=== PATIENT | female | born 1965 | race African-American/Black ===

== ENCOUNTER 2021-11-13 21:21 | Inpatient (IN) | payer MEDICARE, MEDICAID ==
[~2021-11-13] VITALS: Ht 170.2 cm; Wt 123.8 kg
[2021-11-13 21:21] VITALS: BP 142/62
[2021-11-14] MEDS ORDERED: ONDANSETRON HCL 4MG/2ML INJ IV PRN
[2021-11-14] MEDS ORDERED: CLONIDINE 0.1MG TABLET PO PRN
[2021-11-14] MEDS ORDERED: ZOLPIDEM TARTRATE 5MG TABLET PO PRN
[2021-11-14] MEDS ORDERED: NA PHOS,M-B/NA PHOS,DI-BA ENEMA 118ML PR PRN
[2021-11-14] MEDS ORDERED: IPRATROPIUM/ALBUTEROL 0.5-3(2.5)MG/3ML NEB HHN SCH
[2021-11-14] MEDS ORDERED: GUAIFENESIN-DM 200MG-20MG/10ML UDC PO PRN
[2021-11-14] MEDS ORDERED: ACETAMINOPHEN 325MG TABLET PO PRN
[2021-11-14] MEDS ORDERED: NITROGLYCERIN 0.4MG TABLET SL SL PRN
[2021-11-14] MEDS ORDERED: DEXTROSE 50% WATER 50ML SYRINGE IV PRN
[2021-11-14] MEDS: DEXAMETHASONE 4MG TABLET PO SCH ×2 (05:02→12:43)
[2021-11-14] MEDS: BLOOD SUGAR DIAGNOSTIC STRIP TEST SCH ×4 (05:25→21:00)
[2021-11-14 07:03] LABS: CHLORIDE 107 mEq/L (98-107)
[2021-11-14 07:12] LABS: BASOPHILS % 0.8 % (0.0-2.0); EOSINOPHILS % 0.6 % (0.0-5.0); HEMATOCRIT. 39.7 % (36.0-48.0); HEMOGLOBIN. 13.5 g/dL (12.0-16.0); LYMPHOCYTES % 29.2 % (20.0-50.0); MEAN CORPUSCULAR HEMOGLOBIN 31.3 pg (28.0-32.0); MEAN CORPUSCULAR VOLUME 92.5 fL (81.0-99.0); MEAN PLATELET VOLUME 8.4 fl (7.4-10.4); MONOCYTES % 7.2 % (2.0-8.0); NEUTROPHILS % 62.2 % (40.0-76.0); PLATELET 379 x1000/uL (130-400); RED CELL DISTRIBUTION WIDTH 14.2 % (11.6-14.6)
[2021-11-14 08:00] VITALS: BP 149/92
[2021-11-14] MEDS: POTASSIUM CHLORIDE 20MEQ/PACKET PO SCH (08:29)
[2021-11-14] MEDS: FAMOTIDINE 20MG TABLET PO SCH ×2 (08:29→21:21)
[2021-11-14] MEDS: ASPIRIN 81MG TABLET PO SCH (08:29)
[2021-11-14] MEDS: FUROSEMIDE 40MG TABLET PO SCH (08:30)
[2021-11-14] MEDS: LEVETIRACETAM 500MG TABLET PO SCH ×2 (08:30→21:22)
[2021-11-14] MEDS: CLOPIDOGREL 75MG TABLET PO SCH (08:30)
[2021-11-14] MEDS: CARVEDILOL 3.125 MG TABLET PO SCH ×2 (08:33→21:22)
[2021-11-14] MEDS: LOSARTAN POTASSIUM 25 MG TABLET PO SCH (08:33)
[2021-11-14] MEDS: ACETAMINOPHEN 325MG TABLET PO PRN (08:36)
[2021-11-14] MEDS: INSULIN LISPRO 100 UNITS/ML SUBCUT SCH ×4 (08:43→22:24)
[2021-11-14] MEDS ORDERED: IPRATROPIUM/ALBUTEROL 0.5-3(2.5)MG/3ML NEB HHN PRN (09:00)
[2021-11-14] MEDS: DEXAMETHASONE 2MG TABLET PO SCH (17:01)
[2021-11-14 20:00] VITALS: BP 117/60
[2021-11-14] MEDS: ATORVASTATIN CALCIUM 40MG TABLET PO SCH (21:22)
[2021-11-15] MEDS: DEXAMETHASONE 2MG TABLET PO SCH ×4 (00:17→17:00)
[2021-11-15] MEDS ORDERED: ACYCLOVIR (01:18)
[2021-11-15] MEDS ORDERED: FOLI-43 PO (01:18)
[2021-11-15] MEDS ORDERED: METF-414 (01:18)
[2021-11-15] MEDS ORDERED: FURO80TA3 (01:18)
[2021-11-15] MEDS ORDERED: CLOP75TA33 (01:18)
[2021-11-15] MEDS: BLOOD SUGAR DIAGNOSTIC STRIP TEST SCH ×4 (06:08→21:09)
[2021-11-15] MEDS: INSULIN LISPRO 100 UNITS/ML SUBCUT SCH ×4 (06:13→21:27)
[2021-11-15 07:53] LABS: BASOPHILS % 0.6 % (0.0-2.0); EOSINOPHILS % 0.3 % (0.0-5.0); HEMATOCRIT. 40.7 % (36.0-48.0); HEMOGLOBIN. 13.4 g/dL (12.0-16.0); LYMPHOCYTES % 22.6 % (20.0-50.0); MEAN CORPUSCULAR HEMOGLOBIN 30.7 pg (28.0-32.0); MEAN CORPUSCULAR VOLUME 93.4 fL (81.0-99.0); MEAN PLATELET VOLUME 8.6 fl (7.4-10.4); MONOCYTES % 7.5 % (2.0-8.0); PLATELET 358 x1000/uL (130-400); RED BLOOD CELL COUNT 4.36 mill/uL (4.2-5.4)
[2021-11-15 08:00] VITALS: BP 139/72
[2021-11-15 08:00] LABS: CHLORIDE 107 mEq/L (98-107)
[2021-11-15] MEDS: POTASSIUM CHLORIDE 20MEQ/PACKET PO SCH (09:23)
[2021-11-15] MEDS: ASPIRIN 81MG TABLET PO SCH (09:23)
[2021-11-15] MEDS: LEVETIRACETAM 500MG TABLET PO SCH ×2 (09:24→20:43)
[2021-11-15] MEDS: CARVEDILOL 3.125 MG TABLET PO SCH ×2 (09:24→20:44)
[2021-11-15] MEDS: FAMOTIDINE 20MG TABLET PO SCH ×2 (09:24→20:43)
[2021-11-15] MEDS: LOSARTAN POTASSIUM 25 MG TABLET PO SCH (09:24)
[2021-11-15] MEDS: FUROSEMIDE 40MG TABLET PO SCH (09:24)
[2021-11-15] MEDS: CLOPIDOGREL 75MG TABLET PO SCH (09:24)
[2021-11-15 20:00] VITALS: BP 139/72
[2021-11-15] MEDS: ATORVASTATIN CALCIUM 40MG TABLET PO SCH (20:43)
[2021-11-15] MEDS: ENOXAPARIN 120MG/0.8ML SYR SUBCUT SCH (20:43)
[2021-11-15 21:39] LABS: INR 1.1; PROTHROMBIN TIME 11.4 sec (9.6-11.0)
[2021-11-16] MEDS: ENOXAPARIN 120MG/0.8ML SYR SUBCUT SCH ×2 (05:08→17:25)
[2021-11-16] MEDS: DEXAMETHASONE 2MG TABLET PO SCH ×2 (05:08→17:25)
[2021-11-16] MEDS: BLOOD SUGAR DIAGNOSTIC STRIP TEST SCH ×4 (06:01→21:02)
[2021-11-16] MEDS: INSULIN LISPRO 100 UNITS/ML SUBCUT SCH ×4 (06:54→21:02)
[2021-11-16 08:00] VITALS: BP 123/74
[2021-11-16] MEDS: POTASSIUM CHLORIDE 20MEQ/PACKET PO SCH (09:46)
[2021-11-16] MEDS: FAMOTIDINE 20MG TABLET PO SCH ×2 (09:46→21:02)
[2021-11-16] MEDS: ASPIRIN 81MG TABLET PO SCH (09:46)
[2021-11-16] MEDS: CLOPIDOGREL 75MG TABLET PO SCH (09:47)
[2021-11-16] MEDS: LEVETIRACETAM 500MG TABLET PO SCH ×2 (09:47→21:02)
[2021-11-16] MEDS: FUROSEMIDE 40MG TABLET PO SCH (09:47)
[2021-11-16] MEDS: CARVEDILOL 3.125 MG TABLET PO SCH ×2 (09:47→21:02)
[2021-11-16] MEDS: LOSARTAN POTASSIUM 25 MG TABLET PO SCH (09:47)
[2021-11-16 20:00] VITALS: BP 126/57
[2021-11-16] MEDS: ATORVASTATIN CALCIUM 40MG TABLET PO SCH (21:02)
[2021-11-17] MEDS: BLOOD SUGAR DIAGNOSTIC STRIP TEST SCH ×4 (05:32→20:45)
[2021-11-17] MEDS: INSULIN LISPRO 100 UNITS/ML SUBCUT SCH ×4 (05:32→20:48)
[2021-11-17] MEDS: ENOXAPARIN 120MG/0.8ML SYR SUBCUT SCH ×2 (05:32→17:43)
[2021-11-17] MEDS: DEXAMETHASONE 2MG TABLET PO SCH ×2 (05:32→17:42)
[2021-11-17 08:00] VITALS: BP 146/81
[2021-11-17] MEDS: ASPIRIN 81MG TABLET PO SCH (10:38)
[2021-11-17] MEDS: CLOPIDOGREL 75MG TABLET PO SCH (10:39)
[2021-11-17] MEDS: LEVETIRACETAM 500MG TABLET PO SCH ×2 (10:39→20:42)
[2021-11-17] MEDS: FUROSEMIDE 40MG TABLET PO SCH (10:39)
[2021-11-17] MEDS: POTASSIUM CHLORIDE 20MEQ/PACKET PO SCH (10:39)
[2021-11-17] MEDS: FAMOTIDINE 20MG TABLET PO SCH ×2 (10:40→20:42)
[2021-11-17] MEDS: CARVEDILOL 3.125 MG TABLET PO SCH ×2 (10:40→20:42)
[2021-11-17] MEDS: LOSARTAN POTASSIUM 25 MG TABLET PO SCH (10:40)
[2021-11-17 20:00] VITALS: BP 116/55
[2021-11-17] MEDS: ATORVASTATIN CALCIUM 40MG TABLET PO SCH (20:42)
[2021-11-18] MEDS: ENOXAPARIN 120MG/0.8ML SYR SUBCUT SCH ×2 (06:14→17:42)
[2021-11-18] MEDS: DEXAMETHASONE 2MG TABLET PO SCH (06:14)
[2021-11-18] MEDS: BLOOD SUGAR DIAGNOSTIC STRIP TEST SCH ×4 (06:14→21:39)
[2021-11-18] MEDS: INSULIN LISPRO 100 UNITS/ML SUBCUT SCH ×4 (06:23→21:51)
[2021-11-18 08:00] VITALS: BP 110/62
[2021-11-18] MEDS: ASPIRIN 81MG TABLET PO SCH (09:07)
[2021-11-18] MEDS: FAMOTIDINE 20MG TABLET PO SCH ×2 (09:08→21:40)
[2021-11-18] MEDS: LEVETIRACETAM 500MG TABLET PO SCH ×2 (09:08→21:40)
[2021-11-18] MEDS: FUROSEMIDE 40MG TABLET PO SCH (09:08)
[2021-11-18] MEDS: LOSARTAN POTASSIUM 25 MG TABLET PO SCH (09:08)
[2021-11-18] MEDS: CARVEDILOL 3.125 MG TABLET PO SCH ×2 (09:08→21:40)
[2021-11-18] MEDS: MAGNESIUM/ALUMINUM HYDROXIDE/SIMETHICONE 30ML UDC PO PRN (09:09)
[2021-11-18] MEDS: POTASSIUM CHLORIDE 20MEQ/PACKET PO SCH (09:09)
[2021-11-18] MEDS: CLOPIDOGREL 75MG TABLET PO SCH (09:09)
[2021-11-18] MEDS: ACETAMINOPHEN 325MG TABLET PO PRN (09:10)
[2021-11-18 14:15] VITALS: BP 110/62
[2021-11-18 14:29] VITALS: BP 98/56
[2021-11-18 15:14] LABS: BASOPHILS % 0.7 % (0.0-2.0); EOSINOPHILS % 0.6 % (0.0-5.0); HEMOGLOBIN. 12.7 g/dL (12.0-16.0); LYMPHOCYTES % 25.6 % (20.0-50.0); MEAN CORPUSCULAR HEMOGLOBIN 30.2 pg (28.0-32.0); MONOCYTES % 6.5 % (2.0-8.0); NEUTROPHILS % 66.6 % (40.0-76.0); PLATELET 309 x1000/uL (130-400); RED BLOOD CELL COUNT 4.19 mill/uL (4.2-5.4)
[2021-11-18 15:23] LABS: CHLORIDE 105 mEq/L (98-107)
[2021-11-18] MEDS: DEXAMETHASONE 1MG TABLET PO SCH (17:42)
[2021-11-18 20:00] VITALS: BP 114/67
[2021-11-18] MEDS: ATORVASTATIN CALCIUM 40MG TABLET PO SCH (21:40)
[2021-11-19] MEDS: DEXAMETHASONE 1MG TABLET PO SCH ×2 (05:45→17:09)
[2021-11-19] MEDS: ENOXAPARIN 120MG/0.8ML SYR SUBCUT SCH ×2 (05:45→17:11)
[2021-11-19] MEDS: INSULIN LISPRO 100 UNITS/ML SUBCUT SCH ×4 (06:40→21:18)
[2021-11-19] MEDS: BLOOD SUGAR DIAGNOSTIC STRIP TEST SCH ×4 (06:40→21:06)
[2021-11-19 08:00] VITALS: BP 96/53
[2021-11-19] MEDS: CARVEDILOL 3.125 MG TABLET PO SCH ×2 (08:01→20:20)
[2021-11-19] MEDS: LOSARTAN POTASSIUM 25 MG TABLET PO SCH (08:01)
[2021-11-19] MEDS: CLOPIDOGREL 75MG TABLET PO SCH (08:52)
[2021-11-19] MEDS: POTASSIUM CHLORIDE 20MEQ/PACKET PO SCH ×2 (08:52→17:09)
[2021-11-19] MEDS: ASPIRIN 81MG TABLET PO SCH (08:52)
[2021-11-19] MEDS: LEVETIRACETAM 500MG TABLET PO SCH ×2 (08:52→20:19)
[2021-11-19] MEDS: FUROSEMIDE 40MG TABLET PO SCH (08:53)
[2021-11-19] MEDS: FAMOTIDINE 20MG TABLET PO SCH ×2 (08:53→20:19)
[2021-11-19 20:00] VITALS: BP 123/65
[2021-11-19] MEDS: ATORVASTATIN CALCIUM 40MG TABLET PO SCH (20:19)
[2021-11-20] MEDS: ENOXAPARIN 120MG/0.8ML SYR SUBCUT SCH ×2 (05:23→17:35)
[2021-11-20] MEDS: DEXAMETHASONE 1MG TABLET PO SCH ×2 (05:24→17:35)
[2021-11-20] MEDS: BLOOD SUGAR DIAGNOSTIC STRIP TEST SCH ×4 (06:13→21:34)
[2021-11-20] MEDS: INSULIN LISPRO 100 UNITS/ML SUBCUT SCH ×4 (06:30→21:46)
[2021-11-20 07:20] LABS: BASOPHILS % 0.6 % (0.0-2.0); EOSINOPHILS % 0.3 % (0.0-5.0); HEMATOCRIT. 35.4 % (36.0-48.0); HEMOGLOBIN. 11.9 g/dL (12.0-16.0); LYMPHOCYTES % 29.1 % (20.0-50.0); MEAN CORPUSCULAR VOLUME 92.1 fL (81.0-99.0); MEAN PLATELET VOLUME 9.2 fl (7.4-10.4); MONOCYTES % 8.7 % (2.0-8.0); NEUTROPHILS % 61.3 % (40.0-76.0); PLATELET 242 x1000/uL (130-400); RED BLOOD CELL COUNT 3.85 mill/uL (4.2-5.4); RED CELL DISTRIBUTION WIDTH 13.5 % (11.6-14.6)
[2021-11-20 08:00] VITALS: BP 108/55
[2021-11-20 08:50] LABS: CHLORIDE 107 mEq/L (98-107)
[2021-11-20] MEDS: FAMOTIDINE 20MG TABLET PO SCH ×2 (09:36→21:39)
[2021-11-20] MEDS: FUROSEMIDE 40MG TABLET PO SCH (09:36)
[2021-11-20] MEDS: CLOPIDOGREL 75MG TABLET PO SCH (09:36)
[2021-11-20] MEDS: POTASSIUM CHLORIDE 20MEQ/PACKET PO SCH ×2 (09:36→17:33)
[2021-11-20] MEDS: LEVETIRACETAM 500MG TABLET PO SCH ×2 (09:36→21:38)
[2021-11-20] MEDS: LOSARTAN POTASSIUM 25 MG TABLET PO SCH (09:36)
[2021-11-20] MEDS: CARVEDILOL 3.125 MG TABLET PO SCH ×2 (09:37→21:39)
[2021-11-20] MEDS: ASPIRIN 81MG TABLET PO SCH (09:37)
[2021-11-20 20:00] VITALS: BP 116/64
[2021-11-20] MEDS: ATORVASTATIN CALCIUM 40MG TABLET PO SCH (21:38)
[2021-11-21] MEDS: DEXAMETHASONE 1MG TABLET PO SCH ×2 (06:04→17:08)
[2021-11-21] MEDS: BLOOD SUGAR DIAGNOSTIC STRIP TEST SCH ×4 (06:04→19:58)
[2021-11-21] MEDS: ENOXAPARIN 120MG/0.8ML SYR SUBCUT SCH ×2 (06:04→17:09)
[2021-11-21] MEDS: INSULIN LISPRO 100 UNITS/ML SUBCUT SCH ×4 (06:10→20:09)
[2021-11-21 08:00] VITALS: BP 109/59
[2021-11-21] MEDS: FUROSEMIDE 40MG TABLET PO SCH (08:43)
[2021-11-21] MEDS: POTASSIUM CHLORIDE 20MEQ/PACKET PO SCH ×2 (08:43→17:08)
[2021-11-21] MEDS: ASPIRIN 81MG TABLET PO SCH (08:43)
[2021-11-21] MEDS: LEVETIRACETAM 500MG TABLET PO SCH ×2 (08:44→20:02)
[2021-11-21] MEDS: ACETAMINOPHEN 325MG TABLET PO PRN (08:44)
[2021-11-21] MEDS: CLOPIDOGREL 75MG TABLET PO SCH (08:44)
[2021-11-21] MEDS: CARVEDILOL 3.125 MG TABLET PO SCH ×2 (08:45→20:01)
[2021-11-21] MEDS: FAMOTIDINE 20MG TABLET PO SCH ×2 (08:45→20:02)
[2021-11-21] MEDS: LOSARTAN POTASSIUM 25 MG TABLET PO SCH (08:46)
[2021-11-21 20:00] VITALS: BP 129/63
[2021-11-21] MEDS: ATORVASTATIN CALCIUM 40MG TABLET PO SCH (20:02)
[2021-11-22] MEDS: INSULIN LISPRO 100 UNITS/ML SUBCUT SCH ×4 (05:46→22:02)
[2021-11-22] MEDS: BLOOD SUGAR DIAGNOSTIC STRIP TEST SCH ×4 (05:46→21:51)
[2021-11-22] MEDS: DEXAMETHASONE 1MG TABLET PO SCH ×2 (05:47→17:12)
[2021-11-22] MEDS: ENOXAPARIN 120MG/0.8ML SYR SUBCUT SCH ×2 (05:48→17:12)
[2021-11-22 08:00] VITALS: BP 104/61
[2021-11-22] MEDS: FUROSEMIDE 40MG TABLET PO SCH (08:18)
[2021-11-22] MEDS: POTASSIUM CHLORIDE 20MEQ/PACKET PO SCH ×2 (08:18→17:05)
[2021-11-22] MEDS: ASPIRIN 81MG TABLET PO SCH (08:18)
[2021-11-22] MEDS: FAMOTIDINE 20MG TABLET PO SCH ×2 (08:18→21:53)
[2021-11-22] MEDS: CLOPIDOGREL 75MG TABLET PO SCH (08:18)
[2021-11-22] MEDS: CARVEDILOL 3.125 MG TABLET PO SCH ×2 (08:18→20:46)
[2021-11-22] MEDS: LEVETIRACETAM 500MG TABLET PO SCH ×2 (08:18→21:53)
[2021-11-22] MEDS: LOSARTAN POTASSIUM 25 MG TABLET PO SCH (08:19)
[2021-11-22 17:10] LABS: 25-HYDROXY VITAMIN D3 28 ng/mL (.)
[2021-11-22 20:00] VITALS: BP 96/63
[2021-11-22] MEDS: ATORVASTATIN CALCIUM 40MG TABLET PO SCH (21:53)
[2021-11-23] MEDS: BLOOD SUGAR DIAGNOSTIC STRIP TEST SCH ×4 (05:38→21:28)
[2021-11-23] MEDS: ENOXAPARIN 120MG/0.8ML SYR SUBCUT SCH (05:41)
[2021-11-23] MEDS: DEXAMETHASONE 1MG TABLET PO SCH ×2 (05:41→17:18)
[2021-11-23] MEDS: INSULIN LISPRO 100 UNITS/ML SUBCUT SCH ×4 (05:48→21:33)
[2021-11-23 08:00] VITALS: BP 128/62
[2021-11-23] MEDS ORDERED: ERGOCALCIFEROL 50000UNITS CAPSULE PO SCH (09:00)
[2021-11-23] MEDS: ASPIRIN 81MG TABLET PO SCH (09:00)
[2021-11-23] MEDS: CARVEDILOL 3.125 MG TABLET PO SCH ×2 (09:16→21:27)
[2021-11-23] MEDS: FAMOTIDINE 20MG TABLET PO SCH ×2 (09:18→21:26)
[2021-11-23] MEDS: LEVETIRACETAM 500MG TABLET PO SCH ×2 (09:18→21:27)
[2021-11-23] MEDS: POTASSIUM CHLORIDE 20MEQ/PACKET PO SCH ×2 (09:18→17:18)
[2021-11-23] MEDS: FUROSEMIDE 40MG TABLET PO SCH (09:18)
[2021-11-23] MEDS: CLOPIDOGREL 75MG TABLET PO SCH (09:18)
[2021-11-23 12:21] LABS: CLARITY URINE TURBID (CLEAR); KETONES URINE TRACE (NEGATIVE); LEUKOCYTE ESTERASE URINE 1+ (NEGATIVE); NITRITE URINE NEGATIVE (NEGATIVE); OCCULT BLOOD URINE 3+ (NEGATIVE); PH URINE 5.5 (4.5-8.0); PROTEIN URINE 2+ (NEGATIVE); SPECIFIC GRAVITY URINE 1.026 (1.005-1.030)
[2021-11-23 12:32] LABS: COLOR URINE BLOODY (YELLOW)
[2021-11-23 15:11] LABS: BASOPHILS % 0.5 % (0.0-2.0); EOSINOPHILS % 1.4 % (0.0-5.0); HEMATOCRIT. 37.4 % (36.0-48.0); HEMOGLOBIN. 12.2 g/dL (12.0-16.0); LYMPHOCYTES % 36.3 % (20.0-50.0); MEAN CORPUSCULAR HEMOGLOBIN 29.8 pg (28.0-32.0); MEAN CORPUSCULAR VOLUME 91.1 fL (81.0-99.0); MEAN PLATELET VOLUME 9.3 fl (7.4-10.4); MONOCYTES % 6.9 % (2.0-8.0); NEUTROPHILS % 54.9 % (40.0-76.0); PLATELET 301 x1000/uL (130-400); RED CELL DISTRIBUTION WIDTH 13.9 % (11.6-14.6)
[2021-11-23 15:22] LABS: CHLORIDE 105 mEq/L (98-107)
[2021-11-23] MEDS: MAGNESIUM/ALUMINUM HYDROXIDE/SIMETHICONE 30ML UDC PO PRN ×2 (18:22→18:23)
[2021-11-23 20:00] VITALS: BP 141/2
[2021-11-23] MEDS ORDERED: RIVAROXABAN 10 MG TABLET PO SCH (21:00)
[2021-11-23] MEDS: ATORVASTATIN CALCIUM 40MG TABLET PO SCH (21:27)
[2021-11-23] MEDS: RIVAROXABAN 20 MG TABLET PO SCH (21:28)
[2021-11-24] MEDS: BLOOD SUGAR DIAGNOSTIC STRIP TEST SCH ×4 (06:15→20:50)
[2021-11-24] MEDS: DEXAMETHASONE 1MG TABLET PO SCH ×2 (06:16→17:41)
[2021-11-24] MEDS: INSULIN LISPRO 100 UNITS/ML SUBCUT SCH ×4 (06:24→20:56)
[2021-11-24 09:04] VITALS: BP 124/83
[2021-11-24] MEDS: CARVEDILOL 3.125 MG TABLET PO SCH ×2 (09:09→20:44)
[2021-11-24] MEDS: POTASSIUM CHLORIDE 20MEQ/PACKET PO SCH ×2 (09:09→17:41)
[2021-11-24] MEDS: FUROSEMIDE 40MG TABLET PO SCH (09:09)
[2021-11-24] MEDS: FAMOTIDINE 20MG TABLET PO SCH ×2 (09:09→20:44)
[2021-11-24] MEDS: LEVETIRACETAM 500MG TABLET PO SCH ×2 (09:09→20:43)
[2021-11-24] MEDS: ACETAMINOPHEN 325MG TABLET PO PRN (09:15)
[2021-11-24 20:00] VITALS: BP 111/66
[2021-11-24] MEDS: ATORVASTATIN CALCIUM 40MG TABLET PO SCH (20:43)
[2021-11-24] MEDS: RIVAROXABAN 20 MG TABLET PO SCH (20:44)
[2021-11-25] MEDS: DEXAMETHASONE 1MG TABLET PO SCH ×2 (05:59→17:32)
[2021-11-25] MEDS: BLOOD SUGAR DIAGNOSTIC STRIP TEST SCH ×4 (06:04→20:44)
[2021-11-25] MEDS: INSULIN LISPRO 100 UNITS/ML SUBCUT SCH ×4 (06:28→20:43)
[2021-11-25 07:24] LABS: BASOPHILS % 0.8 % (0.0-2.0); HEMATOCRIT. 33.1 % (36.0-48.0); LYMPHOCYTES % 37.9 % (20.0-50.0); MEAN CORPUSCULAR HEMOGLOBIN 30.7 pg (28.0-32.0); MEAN CORPUSCULAR VOLUME 92.5 fL (81.0-99.0); MEAN PLATELET VOLUME 9.2 fl (7.4-10.4); MONOCYTES % 6.1 % (2.0-8.0); NEUTROPHILS % 53.2 % (40.0-76.0); PLATELET 289 x1000/uL (130-400); RED BLOOD CELL COUNT 3.58 mill/uL (4.2-5.4); RED CELL DISTRIBUTION WIDTH 13.5 % (11.6-14.6)
[2021-11-25 07:36] LABS: CHLORIDE 106 mEq/L (98-107)
[2021-11-25 08:00] VITALS: BP 126/73
[2021-11-25] MEDS: LEVETIRACETAM 500MG TABLET PO SCH ×2 (09:05→20:36)
[2021-11-25] MEDS: POTASSIUM CHLORIDE 20MEQ/PACKET PO SCH ×2 (09:05→17:32)
[2021-11-25] MEDS: CARVEDILOL 3.125 MG TABLET PO SCH ×2 (09:05→20:34)
[2021-11-25] MEDS: FAMOTIDINE 20MG TABLET PO SCH ×2 (09:05→20:36)
[2021-11-25] MEDS: FUROSEMIDE 40MG TABLET PO SCH (12:27)
[2021-11-25 20:00] VITALS: BP_SYST 119; BP_SYST 99; BP_DIAS 52; BP_DIAS 65
[2021-11-25] MEDS: ATORVASTATIN CALCIUM 40MG TABLET PO SCH (20:36)
[2021-11-25] MEDS: RIVAROXABAN 20 MG TABLET PO SCH (21:04)
[2021-11-26] MEDS: BLOOD SUGAR DIAGNOSTIC STRIP TEST SCH ×4 (06:30→20:18)
[2021-11-26] MEDS: INSULIN LISPRO 100 UNITS/ML SUBCUT SCH ×4 (06:38→20:39)
[2021-11-26] MEDS: DEXAMETHASONE 1MG TABLET PO SCH ×2 (06:41→17:00)
[2021-11-26 08:00] VITALS: BP 126/72
[2021-11-26] MEDS: POTASSIUM CHLORIDE 20MEQ/PACKET PO SCH ×2 (08:29→16:59)
[2021-11-26] MEDS: FAMOTIDINE 20MG TABLET PO SCH ×2 (08:30→20:17)
[2021-11-26] MEDS: FUROSEMIDE 40MG TABLET PO SCH (08:30)
[2021-11-26] MEDS: LEVETIRACETAM 500MG TABLET PO SCH ×2 (08:30→20:16)
[2021-11-26] MEDS: CARVEDILOL 3.125 MG TABLET PO SCH ×2 (08:31→20:41)
[2021-11-26 20:00] VITALS: BP 148/44
[2021-11-26] MEDS: RIVAROXABAN 20 MG TABLET PO SCH (20:16)
[2021-11-26] MEDS: ATORVASTATIN CALCIUM 40MG TABLET PO SCH (20:16)
[2021-11-27] MEDS: DEXAMETHASONE 1MG TABLET PO SCH ×2 (05:56→17:59)
[2021-11-27] MEDS: BLOOD SUGAR DIAGNOSTIC STRIP TEST SCH ×4 (06:10→21:13)
[2021-11-27 07:13] LABS: BASOPHILS % 0.9 % (0.0-2.0); EOSINOPHILS % 1.7 % (0.0-5.0); HEMATOCRIT. 33.3 % (36.0-48.0); HEMOGLOBIN. 11.1 g/dL (12.0-16.0); LYMPHOCYTES % 33.4 % (20.0-50.0); MEAN CORPUSCULAR HEMOGLOBIN 30.8 pg (28.0-32.0); MEAN PLATELET VOLUME 8.9 fl (7.4-10.4); MONOCYTES % 5.2 % (2.0-8.0); NEUTROPHILS % 58.8 % (40.0-76.0); PLATELET 317 x1000/uL (130-400); RED BLOOD CELL COUNT 3.62 mill/uL (4.2-5.4); RED CELL DISTRIBUTION WIDTH 13.7 % (11.6-14.6)
[2021-11-27] MEDS: INSULIN LISPRO 100 UNITS/ML SUBCUT SCH ×4 (07:15→22:58)
[2021-11-27 07:59] LABS: CHLORIDE 104 mEq/L (98-107)
[2021-11-27 08:00] VITALS: BP 129/78
[2021-11-27] MEDS: LEVETIRACETAM 500MG TABLET PO SCH ×2 (10:42→22:50)
[2021-11-27] MEDS: FUROSEMIDE 40MG TABLET PO SCH (10:43)
[2021-11-27] MEDS: FAMOTIDINE 20MG TABLET PO SCH ×2 (10:43→22:50)
[2021-11-27] MEDS: CARVEDILOL 3.125 MG TABLET PO SCH ×2 (10:43→22:51)
[2021-11-27] MEDS: POTASSIUM CHLORIDE 20MEQ/PACKET PO SCH ×2 (10:44→17:59)
[2021-11-27] MEDS: AMOXICILLIN 500 MG CAPSULE PO SCH ×2 (17:59→18:00)
[2021-11-27 20:00] VITALS: BP 142/72
[2021-11-27] MEDS: RIVAROXABAN 20 MG TABLET PO SCH (22:50)
[2021-11-27] MEDS: ATORVASTATIN CALCIUM 40MG TABLET PO SCH (22:50)
[2021-11-28] MEDS: AMOXICILLIN 500 MG CAPSULE PO SCH ×2 (06:00→14:00)
[2021-11-28] MEDS: DEXAMETHASONE 1MG TABLET PO SCH (06:15)
[2021-11-28] MEDS: BLOOD SUGAR DIAGNOSTIC STRIP TEST SCH ×3 (06:15→16:49)
[2021-11-28] MEDS: INSULIN LISPRO 100 UNITS/ML SUBCUT SCH ×3 (06:21→17:03)
[2021-11-28 08:00] VITALS: BP 128/63
[2021-11-28] MEDS: LEVETIRACETAM 500MG TABLET PO SCH (08:32)
[2021-11-28] MEDS: FAMOTIDINE 20MG TABLET PO SCH (08:33)
[2021-11-28] MEDS: CARVEDILOL 3.125 MG TABLET PO SCH (08:33)
[2021-11-28] MEDS: POTASSIUM CHLORIDE 20MEQ/PACKET PO SCH ×2 (08:33→16:57)
[2021-11-28] MEDS: ACETAMINOPHEN 325MG TABLET PO PRN (08:33)
[2021-11-28] MEDS: FUROSEMIDE 40MG TABLET PO SCH (08:33)
== END 2021-11-28 19:32 | disposition left against medical advice (07) | DRG 56 ==
PROVIDERS: ADMIT Physical Medicine & Rehabilitation Spinal Cord Injury Medicine; ATTEND Internal Medicine
DX: I69.351 Hemiplegia and hemiparesis following cerebral infarction affecting right dominant side (principal); I63.89 Other cerebral infarction; E44.1 Mild protein-calorie malnutrition; Z68.41 Body mass index [BMI] 40.0-44.9, adult; N39.0 Urinary tract infection, site not specified; M47.12 Other spondylosis with myelopathy, cervical region; I42.9 Cardiomyopathy, unspecified; I82.431 Acute embolism and thrombosis of right popliteal vein; R13.10 Dysphagia, unspecified; E78.00 Pure hypercholesterolemia, unspecified; D63.8 Anemia in other chronic diseases classified elsewhere; E11.65 Type 2 diabetes mellitus with hyperglycemia; E78.5 Hyperlipidemia, unspecified; F41.9 Anxiety disorder, unspecified; F32.A Depression, unspecified; G47.33 Obstructive sleep apnea (adult) (pediatric); F01.50 Vascular dementia, unspecified severity, without behavioral disturbance, psychotic disturbance, mood disturbance, and anxiety; E87.6 Hypokalemia; E55.9 Vitamin D deficiency, unspecified; Z53.29 Procedure and treatment not carried out because of patient's decision for other reasons; I11.0 Hypertensive heart disease with heart failure; M50.30 Other cervical disc degeneration, unspecified cervical region; M48.02 Spinal stenosis, cervical region; I50.9 Heart failure, unspecified; E66.09 Other obesity due to excess calories; E61.1 Iron deficiency; R31.9 Hematuria, unspecified; Z79.01 Long term (current) use of anticoagulants; I69.320 Aphasia following cerebral infarction; I69.322 Dysarthria following cerebral infarction; I69.391 Dysphagia following cerebral infarction; Z79.899 Other long term (current) drug therapy; Z79.4 Long term (current) use of insulin; Z79.02 Long term (current) use of antithrombotics/antiplatelets; R26.9 Unspecified abnormalities of gait and mobility; R56.9 Unspecified convulsions; B96.20 Unspecified Escherichia coli [E. coli] as the cause of diseases classified elsewhere
CPT/HCPCS: 36415; 80048; 80053; 81003; 82140; 82306; 82962; 84134; 84443; 85025; 87077; 87186; 92523; 92610; 93970; 97110; 97112; 97116; 97162; 97167; 97530; 97535; 97760; A4565; J1650; J1815; J8540